=== PATIENT | male | born 1970 | race African-American/Black ===

== ENCOUNTER 2019-01-02 05:57 | Emergency (ER) | payer BC ==
[~2019-01-02] VITALS: Ht 190.5 cm; Wt 70.0 kg
[~2019-01-02 05:57] MED LIST: HYDR-3980 PO; NALO4SPR NS; ONDA4TAB14 PO
[2019-01-02 06:08] VITALS: BP 132/81; PULSE 100; RESP 16; Ht 190.5 cm; Wt 70.0 kg
[2019-01-02] MEDS ORDERED: SOD CHLORIDE 0.9% 1,000 ML IV STA (07:07)
[2019-01-02] MEDS ORDERED: KETOROLAC 30 MG INJ IV STA (07:07)
[2019-01-02] MEDS ORDERED: ONDANSETRON 4 MG INJ IV STA (07:07)
[2019-01-02] MEDS ORDERED: traMADol 50 MG TAB PO ONE (07:30)
== END 2019-01-02 08:05 | disposition left against medical advice (07) ==
LOC: FTE 05:57
DX: R10.12 Left upper quadrant pain (principal); R10.13 Epigastric pain
CPT/HCPCS: 36415; 80053; 81003; 83690; 85025; 96374; 99284; J2405; J7030; J1885